=== PATIENT | female | born 1985 ===

== ENCOUNTER 2017-05-22 15:00 | Outpatient (CLI) | payer OTHER ==
--- NOTE | 2017-05-22 15:57 | Diagnostic Imaging Report ---
Indication: Back pain Findings: 2 views of the thoracic spine were obtained. Normal bony mineralization and alignment are demonstrated. Vertebral body heights and intervertebral disc heights are normal. The posterior elements including the facets are unremarkable. Soft tissues are unremarkable. Impression: Negative thoracic spine series
== END 2017-05-22 17:00 | disposition home or self-care (01) ==
LOC: RAD 15:00
DX: M54.6 Pain in thoracic spine (principal)
CPT/HCPCS: 72070